=== PATIENT | male | born 1975 | race Caucasian/White ===

== ENCOUNTER 2020-03-25 14:03 | Emergency (ER) | payer OTHER ==
[2020-03-25 16:02] LABS: BASOPHIL 0.8 % (0-2); EOSINOPHIL 5.1 % (0-5); HCT 44.4 % (42.0-52.0); HGB 15.1 g/dl (13.2-18.0); LYMPHOCYTE 39.1 % (15-48); MCH 29.4 pg (25.0-31.0); MCV 86.4 fL (78.0-100.0); MONOCYTE 6.1 % (0-12); MPV 10.6 fL (6.0-9.5); NEUTROPHIL 48.7 % (41-80); NRBC 0; PLT 211 K/uL (150-400); RBC 5.14 M/uL (4.70-6.00); RDW 13.3 % (11.5-14.0); WBC 8.7 K/uL (4.0-10.5)
[2020-03-25 16:02] LABS: BILIRUBIN 1+ mg/dL (NEGATIVE); BLOOD NEGATIVE Ery/uL (NEGATIVE); CLARITY CLEAR (CLEAR); COLOR YELLOW (YELLOW); GLUCOSE (U) 1+ mg/dL (NORMAL); LEUKOCYTES NEGATIVE Leu/uL (NEGATIVE); NITRITE NEGATIVE (NEGATIVE); PROTEIN TRACE (LOW) mg/dL (NEGATIVE); SPECIFIC GRAVITY >=1.030 (1.001-1.030); UROBILINOGEN 0.2 mg/dL (0.2-1.0); pH 5.5 (5.0-9.0)
[2020-03-25 16:09] LABS: SQUAMOUS EPITHELIAL CELLS RARE
[2020-03-25 16:22] LABS: BILIRUBIN - TOTAL 0.5 mg/dL (0.2-1.0); BUN/CREAT RATIO (CALC) 8.9 RATIO; CREATININE 0.9 mg/dL (0.67-1.17); GLOBULIN (CALCULATION) 3.6 g/dL; POTASSIUM 4.4 mmol/L (3.5-5.1); TOTAL PROTEIN 7.6 g/dL (6.4-8.2)
[2020-03-25 16:52] LABS: LACTIC ACID 0.7 mmol/L (0.4-1.9)
== END 2020-03-25 17:25 | disposition home or self-care (01) ==
LOC: FER 14:03
PROVIDERS: Emergency Medicine
DX: K80.70 Calculus of gallbladder and bile duct without cholecystitis without obstruction (principal); K76.0 Fatty (change of) liver, not elsewhere classified; R07.81 Pleurodynia; E78.00 Pure hypercholesterolemia, unspecified; M10.9 Gout, unspecified; E66.9 Obesity, unspecified; F17.200 Nicotine dependence, unspecified, uncomplicated; Z79.899 Other long term (current) drug therapy; Z90.49 Acquired absence of other specified parts of digestive tract
CPT/HCPCS: 36415; 71045; 76705; 80053; 81001; 83605; 83690; 84484; 85025; 93005